=== PATIENT | female | born 1995 | race Caucasian/White ===

== ENCOUNTER 2017-04-05 19:02 | Inpatient (IN) | payer BC, OTHER ==
[~2017-04-05] VITALS: Ht 129.5 cm; Wt 45.8 kg
[2017-04-05 21:33] LABS: PLATELET COUNT 330 x10^3mcL (130-400)
[2017-04-05 21:34] LABS: BASOPHIL % 0 % (0-2); RED CELL DISTRIBUTION WIDTH 21.9 % (11.5-14.5)
[2017-04-05 21:39] LABS: CALCIUM 9.2 mg/dL (8.5-10.1); CARBON DIOXIDE 28.1 mmol/L (21-32); CHLORIDE SERUM 103 mmol/L (98-107); CREATININE SERUM 0.7 mg/dL (0.6-1.0); GFR1 > 60 mL/min; GLUCOSE SERUM 104 mg/dL (74-106); POTASSIUM SERUM 3.9 mmol/L (3.5-5.1); SODIUM SERUM 141 mmol/L (136-145)
[2017-04-05 21:43] LABS: ALBUMIN 4.1 g/dL (3.4-5.0); ALKALINE PHOSPHATASE 68 U/L (46-116); ALT/SGPT 13 U/L (14-59); AST/SGOT 12 U/L (15-37); BILIRUBIN TOTAL 0.57 mg/dL (0.20-1.00); TOTAL PROTEIN, SERUM 8.2 g/dL (6.4-8.2)
[2017-04-05 22:05] LABS: CK-MB < 0.5 ng/mL (0-3.6); CREATINE KINASE 30 U/L (26-192)
[2017-04-05 23:34] LABS: microscopic required? YES; urine erythrocyte NEGATIVE (NEGATIVE)
[2017-04-05 23:53] LABS: AMPHETAMINE QUAL UR NONE DETECTED (NEG <=1000)
[2017-04-05 23:56] VITALS: BP 130/95
[2017-04-06 02:37] LABS: MAGNESIUM 2.3 mg/dL (1.8-2.4)
[2017-04-06 02:52] LABS: FREE T4 1.2 ng/dL (0.76-1.46); T4(THYROXINE) 9.3 ug/dL (4.7-13.3)
[2017-04-06 02:59] LABS: T3 TOTAL 0.94 ng/mL
[2017-04-06 03:04] LABS: TOTAL IRON BINDING CAPACITY 396 ug/dL (250-450)
[2017-04-06 04:07] LABS: IRON 16 ug/dL (50-170)
[2017-04-06 05:29] VITALS: BP 119/83
[2017-04-06 06:14] LABS: PLATELET COUNT 241 x10^3mcL (130-400)
[2017-04-06 06:37] LABS: CALCIUM 8.8 mg/dL (8.5-10.1); CARBON DIOXIDE 28.9 mmol/L (21-32); CHLORIDE SERUM 105 mmol/L (98-107); CHOLESTEROL 157 mg/dL (<200); CHOLESTEROL/HDL RATIO 2.9; CREATININE SERUM 0.5 mg/dL (0.6-1.0); GFR1 > 60 mL/min; GLUCOSE SERUM 81 mg/dL (74-106); HDL CHOLESTEROL 54 mg/dL (40-60); MAGNESIUM 2.4 mg/dL (1.8-2.4); PHOSPHOROUS 3.9 mg/dL (2.5-4.9); POTASSIUM SERUM 4.8 mmol/L (3.5-5.1); SODIUM SERUM 141 mmol/L (136-145); TRIGLYCERIDES 39 mg/dL (<150)
[2017-04-06 06:56] LABS: BASOPHIL % 2.4 % (0-2)
[2017-04-06 08:24] LABS: RED BLOOD CELLS 3.73 M/mm3 (4.10-5.10)
[2017-04-06 08:43] LABS: rbc morphology (normal/abnorm) ABNORMAL (NORMAL)
[2017-04-06 11:06] VITALS: BP 105/71
[2017-04-06 15:11] VITALS: BP 114/82
[2017-04-06 21:46] VITALS: BP 122/86
[2017-04-07 05:57] LABS: BASOPHIL % 1.6 % (0-2); PLATELET COUNT 296 x10^3mcL (130-400)
[2017-04-07 06:12] LABS: CARBON DIOXIDE 28.1 mmol/L (21-32); CHLORIDE SERUM 105 mmol/L (98-107); CREATININE SERUM 0.5 mg/dL (0.6-1.0); GFR1 > 60 mL/min; GLUCOSE SERUM 91 mg/dL (74-106); POTASSIUM SERUM 4.8 mmol/L (3.5-5.1); SODIUM SERUM 138 mmol/L (136-145)
[2017-04-07 06:28] VITALS: BP 125/85
[2017-04-07 07:47] LABS: RED CELL DISTRIBUTION WIDTH 21.9 % (11.5-14.5)
[2017-04-07 07:48] LABS: rbc morphology (normal/abnorm) ABNORMAL (NORMAL)
[2017-04-07 10:00] VITALS: BP 114/72
[2017-04-07] MEDS ORDERED: FERG PO (10:31)
[2017-04-07] MEDS ORDERED: PRADAXA75 M1 PO (10:32)
[2017-04-07] MEDS ORDERED: TYL325 PO (10:33)
[2017-04-07] MEDS ORDERED: COL100 PO (10:34)
[2017-04-07] MEDS ORDERED: BACTRIM DS1 TAB PO (10:35)
[2017-04-07 13:11] VITALS: BP 114/72
[2017-04-07 14:11] VITALS: BP 126/83
== END 2017-04-07 14:34 | disposition home or self-care (01) | DRG 300 ==
LOC: ED 19:02 → DU 21:41
PROVIDERS: Emergency Medicine; ADMIT Family Medicine
DX: I82.412 Acute embolism and thrombosis of left femoral vein (principal); N39.0 Urinary tract infection, site not specified; I82.4Z2 Acute embolism and thrombosis of unspecified deep veins of left distal lower extremity; G43.909 Migraine, unspecified, not intractable, without status migrainosus; D50.9 Iron deficiency anemia, unspecified; Q05.9 Spina bifida, unspecified; Z68.27 Body mass index [BMI] 27.0-27.9, adult; Z79.1 Long term (current) use of non-steroidal anti-inflammatories (NSAID)
CPT/HCPCS: 83880; 84439; J0696; J1644; J7030; Q0092

== ENCOUNTER 2017-08-09 18:06 | Inpatient (IN) | payer BC, OTHER ==
[~2017-08-09] VITALS: Ht 129.5 cm; Wt 48.3 kg
[~2017-08-09 18:06] MED LIST: BACTRIM DS1 TAB PO; COL100 PO; FERG PO; PRADAXA75 M1 PO; TYL325 PO
[2017-08-09 19:17] LABS: PLATELET COUNT 342 x10^3mcL (130-400)
[2017-08-09 19:33] LABS: ALKALINE PHOSPHATASE 91 U/L (46-116); ALT/SGPT 15 U/L (14-59); AST/SGOT 18 U/L (15-37); BILIRUBIN TOTAL 1.3 mg/dL (0.20-1.00); CALCIUM 8.7 mg/dL (8.5-10.1); CARBON DIOXIDE 19.7 mmol/L (21-32); CHLORIDE SERUM 93 mmol/L (98-107); GFR1 > 60 mL/min; GLUCOSE SERUM 87 mg/dL (74-106); SODIUM SERUM 134 mmol/L (136-145); TOTAL PROTEIN, SERUM 7.6 g/dL (6.4-8.2)
[2017-08-09 19:35] LABS: BAND NEUTROPHIL 3 % (0-10); BASOPHIL 0 % (0-2); MONOCYTE 2 % (0-7); SEGMENTED NEUTROPHILS 93 % (37-75); rbc morphology (normal/abnorm) NORMAL (NORMAL)
[2017-08-09 19:36] LABS: ALBUMIN 2.9 g/dL (3.4-5.0)
[2017-08-09 19:38] LABS: POTASSIUM SERUM 2.9 mmol/L (3.5-5.1)
[2017-08-09 19:39] LABS: CK-MB < 0.5 ng/mL (0-3.6); CREATINE KINASE 88 U/L (26-192)
[2017-08-09 20:45] LABS: MAGNESIUM 2.6 mg/dL (1.8-2.4)
[2017-08-09 20:46] LABS: CHOLESTEROL/HDL RATIO 4.5
[2017-08-09 20:52] LABS: FREE T4 0.96 ng/dL (0.76-1.46); T3 TOTAL 0.19 ng/mL
[2017-08-09 21:04] LABS: FREE THYROXINE INDEX 1.9 ug/dL (1.4-4.5); T4(THYROXINE) 5.2 ug/dL (4.7-13.3)
[2017-08-09 22:51] VITALS: BP 107/65
[2017-08-09 23:01] VITALS: Ht 129.5 cm; Wt 48.3 kg
[2017-08-10 02:08] LABS: UA SPECIFIC GRAVITY >=1.030 (1.005-1.035); microscopic required? YES; urine erythrocyte 2+ (NEGATIVE)
[2017-08-10 02:18] LABS: AMPHETAMINE QUAL UR NONE DETECTED (NEG <=1000)
[2017-08-10 02:29] LABS: CALCIUM 7.9 mg/dL (8.5-10.1); CARBON DIOXIDE 21.5 mmol/L (21-32); CHLORIDE SERUM 99 mmol/L (98-107); CREATININE SERUM 0.9 mg/dL (0.6-1.0); GFR1 > 60 mL/min; GLUCOSE SERUM 94 mg/dL (74-106); POTASSIUM SERUM 3.3 mmol/L (3.5-5.1); SODIUM SERUM 133 mmol/L (136-145)
[2017-08-10 05:49] VITALS: BP 97/50
[2017-08-10 06:04] LABS: PLATELET COUNT 261 x10^3mcL (130-400)
[2017-08-10 06:29] LABS: RED CELL DISTRIBUTION WIDTH 15.9 % (11.5-14.5)
[2017-08-10 06:35] LABS: CARBON DIOXIDE 18.4 mmol/L (21-32); CHLORIDE SERUM 101 mmol/L (98-107); CREATININE SERUM 0.8 mg/dL (0.6-1.0); GFR1 > 60 mL/min; GLUCOSE SERUM 86 mg/dL (74-106); MAGNESIUM 2.4 mg/dL (1.8-2.4); PHOSPHOROUS 1.6 mg/dL (2.5-4.9); POTASSIUM SERUM 3.9 mmol/L (3.5-5.1); SODIUM SERUM 135 mmol/L (136-145)
[2017-08-10 07:53] LABS: BAND NEUTROPHIL 17 % (0-10); MONOCYTE 5 % (0-7); SEGMENTED NEUTROPHILS 75 % (37-75); rbc morphology (normal/abnorm) ABNORMAL (NORMAL)
[2017-08-10 09:54] VITALS: BP 91/50
[2017-08-10 14:20] VITALS: BP 105/63
[2017-08-10 16:59] VITALS: BP 94/58
[2017-08-10 20:47] VITALS: BP 94/56
[2017-08-11 06:01] VITALS: BP 102/63
[2017-08-11 06:35] LABS: CALCIUM 8.3 mg/dL (8.5-10.1); CHLORIDE SERUM 106 mmol/L (98-107); CREATININE SERUM 0.7 mg/dL (0.6-1.0); GFR1 > 60 mL/min; GLUCOSE SERUM 94 mg/dL (74-106); MAGNESIUM 2.3 mg/dL (1.8-2.4); PHOSPHOROUS 1.2 mg/dL (2.5-4.9); POTASSIUM SERUM 3.4 mmol/L (3.5-5.1); SODIUM SERUM 137 mmol/L (136-145)
[2017-08-11 07:27] LABS: PLATELET COUNT 304 x10^3mcL (130-400)
[2017-08-11 07:28] LABS: RED CELL DISTRIBUTION WIDTH 16.5 % (11.5-14.5)
[2017-08-11 07:34] LABS: IRON 14 ug/dL (50-170); TOTAL IRON BINDING CAPACITY 202 ug/dL (250-450)
[2017-08-11 07:42] LABS: RED BLOOD CELLS 3.46 M/mm3 (4.10-5.10)
[2017-08-11 09:39] LABS: BASOPHIL 0 % (0-2); MONOCYTE 7 % (0-7)
[2017-08-11 09:40] LABS: BAND NEUTROPHIL 12 % (0-10); SEGMENTED NEUTROPHILS 71 % (37-75)
[2017-08-11 09:41] LABS: PLATELET MORPHOLOGY PLATELETS NORMAL; rbc morphology (normal/abnorm) ABNORMAL (NORMAL)
[2017-08-11 09:42] LABS: burr cell (echinocyte) 1+; schistocyte (helmet cell) 1+
[2017-08-11 09:47] VITALS: BP 118/76
[2017-08-11 13:24] VITALS: BP 110/83
[2017-08-11 17:12] VITALS: BP 107/70
[2017-08-11 22:22] VITALS: BP 114/80
[2017-08-12 05:57] VITALS: BP 123/78
[2017-08-12 08:00] LABS: BASOPHIL % 0.1 % (0-2); PLATELET COUNT 319 x10^3mcL (130-400)
[2017-08-12 08:03] LABS: RED CELL DISTRIBUTION WIDTH 16.5 % (11.5-14.5)
[2017-08-12 08:15] LABS: CALCIUM 7.7 mg/dL (8.5-10.1); CARBON DIOXIDE 24.7 mmol/L (21-32); CHLORIDE SERUM 107 mmol/L (98-107); CREATININE SERUM 0.5 mg/dL (0.6-1.0); GFR1 > 60 mL/min; GLUCOSE SERUM 93 mg/dL (74-106); MAGNESIUM 2.1 mg/dL (1.8-2.4); PHOSPHOROUS 1.7 mg/dL (2.5-4.9); POTASSIUM SERUM 3.5 mmol/L (3.5-5.1); SODIUM SERUM 139 mmol/L (136-145)
[2017-08-12 09:45] VITALS: BP 127/90
[2017-08-12 18:00] VITALS: BP 113/80
[2017-08-12 19:20] VITALS: BP 126/93
[2017-08-13 05:41] VITALS: BP 125/88
[2017-08-13 06:21] LABS: PLATELET COUNT 390 x10^3mcL (130-400)
[2017-08-13 06:40] LABS: CALCIUM 7.7 mg/dL (8.5-10.1); CARBON DIOXIDE 28.3 mmol/L (21-32); CHLORIDE SERUM 104 mmol/L (98-107); CREATININE SERUM 0.4 mg/dL (0.6-1.0); GFR1 > 60 mL/min; GLUCOSE SERUM 86 mg/dL (74-106); MAGNESIUM 1.8 mg/dL (1.8-2.4); PHOSPHOROUS 2.1 mg/dL (2.5-4.9); POTASSIUM SERUM 3.5 mmol/L (3.5-5.1); SODIUM SERUM 136 mmol/L (136-145)
[2017-08-13 07:07] LABS: RED CELL DISTRIBUTION WIDTH 16.4 % (11.5-14.5)
[2017-08-13 09:46] VITALS: BP 122/86
[2017-08-13 10:20] VITALS: BP 104/67
[2017-08-13 12:05] LABS: BAND NEUTROPHIL 10 % (0-10); BASOPHIL 0 % (0-2); MONOCYTE 6 % (0-7); PLATELET MORPHOLOGY PLATELETS NORMAL; SEGMENTED NEUTROPHILS 70 % (37-75); rbc morphology (normal/abnorm) ABNORMAL (NORMAL)
[2017-08-13 12:06] LABS: burr cell (echinocyte) 1+; schistocyte (helmet cell) 1+
[2017-08-13] MEDS ORDERED: ZOS3PM IV (16:10)
[2017-08-13] MEDS ORDERED: LAC PO (16:11)
[2017-08-13 17:07] VITALS: BP 104/67
== END 2017-08-13 18:07 | disposition short-term general hospital (02) | DRG 871 ==
LOC: ED 18:06 → DU 20:13 → MU 08-13 04:17 → DU 08-13 17:07
PROVIDERS: Emergency Medicine; Family Medicine; Family Medicine Sports Medicine
DX: A41.9 Sepsis, unspecified organism (principal); N17.0 Acute kidney failure with tubular necrosis; E44.0 Moderate protein-calorie malnutrition; N39.0 Urinary tract infection, site not specified; E87.1 Hypo-osmolality and hyponatremia; I82.412 Acute embolism and thrombosis of left femoral vein; E86.0 Dehydration; R19.00 Intra-abdominal and pelvic swelling, mass and lump, unspecified site; E87.6 Hypokalemia; E83.39 Other disorders of phosphorus metabolism; E83.41 Hypermagnesemia; G43.909 Migraine, unspecified, not intractable, without status migrainosus; Q05.9 Spina bifida, unspecified; D64.9 Anemia, unspecified; Z91.040 Latex allergy status; Z68.33 Body mass index [BMI] 33.0-33.9, adult
CPT/HCPCS: 83880; 84439; 85378; 87046; 87046-59; 94150; J1644; J1885; J1956; J2405; J2543; J2550; J3010; J3480; J7030; J7620; Q0092; Q9967